=== PATIENT | male | born 2000 | race Caucasian/White ===

== ENCOUNTER 2019-12-29 12:51 | Emergency (ER) | payer OTHER, SELFPAY ==
--- NOTE | ~2019-12-29 | XR_ITS ---
XR knee RT 3V 12/29/2019 13:28 INDICATION: Right lateral knee pain PROCEDURE: 3 views right knee COMPARISON: No prior studies for comparison. FINDINGS: Fracture, dislocation or subluxation is not identified. No significant joint effusion. The soft tissues appear within normal limits. No foreign bodies are identified. IMPRESSION: 1: NO ACUTE BONE OR JOINT ABNORMALITY IDENTIFIED. Reviewed, dictated and finalized at location A.
[2019-12-29 13:17] VITALS: BP 96/54; PULSE 66; RESP 16; TEMP 36.3; O2SAT 99
--- NOTE | 2019-12-29 13:53 | ED.LOWEXIN ---
HPI - Extremity Injury (Lower) General Chief Complaint: Extremity Injury, Lower Stated Complaint: right knee injury Time Seen by Provider: 12/29/19 13:41 Source: patient and RN notes reviewed Mode of arrival: ambulatory Limitations: no limitations History of Present Illness HPI Narrative: Patient presents today complaining of right knee injury. Yesterday while he was swimming, a friend accidentally hit him in the lateral right knee, causing pain. Denies numbness or tingling in the leg or foot. Currently rates his pain 5/10 with walking, and 8/10. He has been taking no medication for pain prior to arrival. MD complaint: knee injury Related Data Home Medications Medication Instructions Recorded Confirmed No Home Medications 11/11/19 Allergies Allergy/AdvReac Type Severity Reaction Status Date / Time POISON ARLEEN Allergy Unknown Uncoded 11/11/19 08:02 Review of Systems Review of Systems: Narrative: CONSTITUTIONAL: Denies body aches, fever, chills, or sweats. EYES: Denies visual changes, redness, or discharge. ENT: Denies rhinorrhea, congestion, sore throat, or otalgia. CARDIOVASCULAR: Denies chest pain, palpitations, or edema. RESPIRATORY: Denies cough or dyspnea. GASTROINTESTINAL: Denies abdominal pain, nausea, vomiting, or diarrhea. GENITOURINARY: Denies dysuria or hematuria. SKIN: Denies rash, itching, or wounds. MUSCULOSKELETAL: Denies back pain, or myalgia. + Right knee injury NEUROLOGIC: Denies headache, numbness, tingling, or weakness. PSYCH: Denies depression or anxiety. [facility] Social History Social History Smoking status: Never smoker Alcohol intake: never Comments At time of signature, I have reviewed and agree with nursing past medical, surgical, social and family history unless otherwise noted. Please see nursing chart for further information. There is no relevant family history pertinent to the presenting complaint Exam Narrative: Exam Narrative: GENERAL: Well-appearing, well-nourished, and in no acute distress. HEAD: Normocephalic, atraumatic. EYES: EOMI. No redness or drainage. Conjunctivae normal. ENT: Mucous membranes pink and moist. NECK: Normal AROM. CHEST: No respiratory distress. EXTREMITIES: Right knee: No edema, ecchymosis, or erythema. Tenderness laterally and posterior laterally. Pain with extension. Patient is unable to fully extend his knee. No pain with flexion. All other extremities grossly normal. Distal sensation intact. Capillary refill normal. Pedal pulse normal. SKIN: Warm, dry, no rash. Capillary refill normal. Normal skin turgor. NEURO: No focal deficits. Alert and oriented x3. Gait steady. PSYCH: Normal affect. No signs of depression or anxiety. Course Vital Signs Vital signs: Vital Signs Temperature 97.3 F L 12/29/19 13:17 Pulse Rate 66 12/29/19 13:17 Respiratory Rate 16 12/29/19 13:17 Blood Pressure 96/54 L 12/29/19 13:17 Pulse Oximetry 99 12/29/19 13:17 Temperature 97.3 F L 12/29/19 13:17 Pulse Rate 66 12/29/19 13:17 Respiratory Rate 16 12/29/19 13:17 Blood Pressure 96/54 L 12/29/19 13:17 Pulse Oximetry 99 12/29/19 13:17 Reviewed MDM - Extremity Injury (Lower) Differential Diagnosis Differential diagnosis: Likely other (Knee sprain, fracture, contusion) Critical Care Time Critical Care Time Critical Care Time: No Discharge Plan Discharge Clinical Impression: Acute pain of right knee Patient Disposition: Home, Self-Care Condition: Stable Instructions: Knee Pain (ED) Additional Instructions: Your x-ray is negative for anything concerning today. As discussed, this does not show the soft tissue structures of your knee. Wear the knee sleeve, elevate, ice, and take anti-inflammatory medications at home such as Aleve or ibuprofen for your pain. Follow-up with orthopedics or your PCP in 1 week for further evaluation if symptoms are not improv
== END 2019-12-29 13:57 | disposition home or self-care (01) ==
PROVIDERS: Emergency Provider Nurse Practitioner
DX: M25.561 Pain in right knee (principal)
CPT/HCPCS: 73562; 99213; G0463

== ENCOUNTER 2021-01-11 11:50 | Outpatient (CLI) | payer OTHER, SELFPAY ==
[2021-01-11 12:12] LABS: Hematocrit 37.7 % (42.0-52.0); Hemoglobin 13.4 g/dL (14.0-18.0); Mean Corpuscular HGB Conc 35.5 g/dl (32-36); Mean Corpuscular Hemoglobin 31.9 pg (26-34); Mean Corpuscular Volume 89.8 fl (80-100); Platelet Count Result 236 k/mm3 (150-375); White Blood Count 5.4 K/mm3 (4.5-10.0)
[2021-01-11 12:25] LABS: Alanine Aminotransferase 17 U/L (4-50); Albumin Level 4.4 g/dL (3.5-5.1); Alkaline Phosphatase 56 U/L (38-126); Anion Gap 8 mmol/L (8-16); Aspartate Amino Transferase 34 U/L (17-59); Bilirubin,Total 0.5 mg/dL (0.2-1.3); Blood Urea Nitrogen 19 mg/dL (9-20); CRP < 0.5 mg/dL (<1.0); Calcium 9.5 mg/dL (8.4-10.2); Carbon Dioxide 31 mmol/L (22-30); Chloride 104 mmol/L (98-107); Estimated Glomerular Filt Rate > 60; Glucose 89 mg/dL (75-110); Potassium 4.2 mmol/L (3.4-5.0); Sodium 143 mmol/L (137-145)
== END 2021-01-11 11:51 | disposition home or self-care (01) ==
PROVIDERS: PCP Family Medicine; Visit Provider Nurse Practitioner Family
DX: K92.1 Melena (principal)
CPT/HCPCS: 36415; 80053; 85027; 86140

== ENCOUNTER 2021-09-13 11:29 | Outpatient (CLI) | payer OTHER, SELFPAY ==
[2021-09-13 13:38] LABS: HIV 1/2 Ab P24 Ag Result Negative (Negative)
[2021-09-14 14:54] LABS: Rapid Plasma Reagin Non-Reactive (NonReactive)
[2021-09-16 19:37] LABS: HSV 1 IgM Screen Negative (Negative); HSV 2 IgM Screen Negative (Negative)
== END 2021-09-13 11:30 | disposition home or self-care (01) ==
PROVIDERS: PCP Family Medicine; Visit Provider Physician Assistant Medical
DX: Z11.3 Encounter for screening for infections with a predominantly sexual mode of transmission (principal)
CPT/HCPCS: 36415; 86592; 86695; 86696; 86703; G0432

== ENCOUNTER 2022-01-05 01:26 | Day surgery (SDC) | payer OTHER, SELFPAY ==
[2021-12-27 11:36] VITALS: BMI 22.7
--- NOTE | 2022-01-04 15:55 | WPDANESEPPF ---
Anes - Initial Pre Proc Eval Procedure: Operation Date: 01/05/22 13:00 Proposed Procedures p Colonoscopy - Christopher Koehler MD Date/Time: 01/04/22 15:55 Surgeon: Christopher Koehler MD Pre Op Diagnosis: anemia, melena Patient Data Age: 21 Gender: M Height: 1.75 m Weight: 69.8 kg Allergies Allergy/AdvReac Type Severity Reaction Status Date / Time poison boyd extract Allergy Rash Verified 01/05/22 11:51 Home Medications Medication Instructions Recorded Confirmed Type hydrocortisone acetate 25 mg 25 mg RECTAL DAILY #24 ea 12/23/21 01/05/22 Rx rectal suppository (Anusol-HC) Patient hx anesthesia problems: none Family hx anesthesia problems: none Results Review: All pre-operative results and documents have been reviewed as part of the pre-operative evaluation. FORMERLY [facility], [facility] Past Medical History Medical History BMI between 19-24,adult Cough Sore throat Family History Family History (Updated 12/23/21 @ 08:12 by Malena Reyna CMA) Father No problems noted. Mother No problems noted. Sibling Seizure Social History Social History (Updated 12/23/21 @ 08:12 by Malena Reyna CMA) Smoking status: Current every day smoker Tobacco type: e-cigarettes/vaping Second hand tobacco smoke exposure: Yes Alcohol intake: current Alcohol use details: weekends Substance use: former Substance use type: does not use Living arrangements: with family Additional occupation/education comments: [employer] Gender identity (if verbalized by the patient): Male Spiritual care concerns: No Anes - Eval Final PreProcedure Day of Procedure 01/04/22 15:55 Patient weight: normal Heart: regular rate and rhythm Lungs: clear to auscultation Airway: Mallampati scale class II Neurological: alert and oriented Last oral intake: >/= 8 hours ASA classification: II Emergent: no Anesthetic plan: proceed Anesthesia type and monitoring: general GIVS and standard monitoring Results Review: All pre-operative results and documents have been reviewed as part of the pre-operative evaluation. Informed Consent: The patient's anesthetic plan and its attendant risks and benefits were discussed with the patient/family/POA. Questions were solicited and answers provided to the satisfaction of the patient/family/POA.
--- NOTE | 2022-01-05 11:44 | P.CONGI_ITS ---
Assessment and Plan Assessment and plan (1) Rectal bleeding: Code(s): K62.5 - Hemorrhage of anus and rectum Status: Acute Assessment and Plan: Patient has had rectal bleeding for a year and half. Plan is for colonoscopy assess more thoroughly. He is relatively normal hemoglobin. He denies any abdominal or rectal pain. High-fiber diet is advised further recommendations will be given after colonoscopy. GI Consult Note Consult date/time: 01/05/22 11:44 Reason for consult: Rectal bleeding. HPI: José Miguel Milligan is a 21 year old male Presents for colonoscopy. Patient reports for at least a year but to year and a half patient has had bright red blood per rectum. This appears to be admixed with stool. He presents today for further evaluation. He denies any abdominal or rectal pain. He states his bowel habits are regular. His family history is significant his father had hemorrhoids but no other colon or rectal disease described. Patient has never had prior abdominal surgery. He has been in good health otherwise. He denies any significant traveling. He is not on blood thinners. Patient presents today for colonoscopy. Review of Systems Review of Systems: Review of systems noncontributory. [facility] Past Medical History Medical History BMI between 19-24,adult Cough Sore throat Family History Family History (Updated 12/23/21 @ 08:12 by Malena Reyna CMA) Father No problems noted. Mother No problems noted. Sibling Seizure Social History Social History (Updated 12/23/21 @ 08:12 by Malena Reyna CMA) Smoking status: Current every day smoker Tobacco type: e-cigarettes/vaping Second hand tobacco smoke exposure: Yes Alcohol intake: current Alcohol use details: weekends Substance use: former Substance use type: does not use Living arrangements: with family Additional occupation/education comments: [employer] Gender identity (if verbalized by the patient): Male Spiritual care concerns: No Meds Home Medications and Allergies Home Medications Medication Instructions Recorded Confirmed Type hydrocortisone acetate 25 mg 25 mg RECTAL DAILY #24 ea 12/23/21 12/27/21 Rx rectal suppository (Anusol-HC) sodium sul 1.479 gram-potas ch See Rx Instructions PO PER PKG DIR 12/26/21 12/27/21 Rx 0.188 gram-magnes sul 0.225 gram #24 tabs tablet (Sutab) Allergies Allergy/AdvReac Type Severity Reaction Status Date / Time POISON ARLEEN Allergy Unknown Uncoded 12/27/21 11:34 Exam Narrative: Physical exam reveals patient to be alert. Vital signs stable. HEENT exam unremarkable. Patient is anicteric. Lungs are clear to auscultation and percussion. Heart is without murmur or extra sounds. Abdominal exam bowel sounds present soft nontender with no organomegaly. Digital external rectal exam is normal.
[2022-01-05 11:49] VITALS: BP 100/56; PULSE 66; RESP 18; TEMP 36.6; O2SAT 99
[2022-01-05] MEDS: LACTATED RINGERS 1,000 ML 150 ML IV CONT (12:06)
[2022-01-05 12:50] VITALS: BP 92/51; PULSE 56; RESP 15; O2SAT 100
[2022-01-05 13:00] VITALS: BP 89/51; PULSE 57; RESP 14; O2SAT 100
[2022-01-05 13:10] VITALS: BP 89/53; PULSE 55; RESP 21; O2SAT 100
== END 2022-01-05 13:15 | disposition home or self-care (01) ==
PROVIDERS: PCP Family Medicine; Visit Provider Internal Medicine Gastroenterology
PROC: 0DJD8ZZ Inspection of Lower Intestinal Tract, Via Natural or Artificial Opening Endoscopic (ICD-10-PCS; CPT 45378; principal; 2022-01-05 13:00)
DX: K62.5 Hemorrhage of anus and rectum (principal); K64.8 Other hemorrhoids; D64.9 Anemia, unspecified; F17.290 Nicotine dependence, other tobacco product, uncomplicated
CPT/HCPCS: 45378; J2704; J7120